=== PATIENT | male | born 1935 | race Caucasian/White ===

== ENCOUNTER 2020-12-03 11:21 | Inpatient (IN) | payer MEDICARE ==
[~2020-12-03] VITALS: Ht 172.7 cm; Wt 43.4 kg
[2020-12-03 11:50] LABS: BASOPHILS ABSOLUTE AUTO 0.04 K/mm3 (0.00-0.23); BASOPHILS PERCENT AUTO 0 % (0-2); EOSINOPHILS ABSOLUTE AUTO 0.02 K/mm3 (0.00-0.68); EOSINOPHILS PERCENT AUTO 0 % (0-6); Hemoglobin 14.1 g/dL (13.5-17.5); IMMATURE GRAN ABSOLUTE AUTO 0.07 K/mm3 (0.00-0.10); IMMATURE GRAN PERCENT AUTO 1 % (0-1); LYMPHOCYTES ABSOLUTE AUTO 0.33 K/mm3 (0.84-5.20); LYMPHOCYTES PERCENT AUTO 2 % (21-46); MONOCYTES ABSOLUTE AUTO 0.89 K/mm3 (0.16-1.47); MONOCYTES PERCENT AUTO 6 % (4-13); Mean Corpuscular HGB 32.9 pg (26.0-34.0); Mean Corpuscular HGB Conc 32.8 g/dL (31.5-36.5); Mean Corpuscular Volume 101 fL (80-100); Mean Platelet Volume 10.1 fL (9.1-12.4); NEUTROPHILS ABSOLUTE AUTO 12.52 K/mm3 (1.96-9.15); NEUTROPHILS PERCENT AUTO 90 % (41-73); Platelet Count 242 K/mm3 (150-400); RDW Coefficient Variation 12.5 % (11.7-14.2); RDW Standard Deviation 46.5 fL (35.1-46.3); Red Blood Cell Count 4.28 M/mm3 (4.30-5.90); White Blood Cell Count 13.87 K/mm3 (4.00-11.30)
[2020-12-03 12:11] LABS: Alanine Aminotransfer (ALT/SGP 7 U/L (12-78); Albumin, Blood 2.1 g/dL (3.4-5.0); Albumin/Globulin Ratio 0.4 (0.8-1.8); Alk Phos 68 U/L (50-136); Anion Gap 10 mmol/L (6-16); Aspartate Aminotrans (AST/SGOT 15 U/L (12-37); Bilirubin, Total 0.9 mg/dL (0.1-1.0); Blood Urea Nitrogen 22 mg/dL (8-24); Bun/Creatinine Ratio 25.1 (12.0-20.0); CO2, Blood 31 mmol/L (21-32); Calcium, Blood 8.6 mg/dL (8.5-10.1); Chloride, Blood 100 mmol/L (98-108); Creatinine, Blood 0.88 mg/dL (0.60-1.20); Globulin, Blood 4.8 g/dL (2.2-4.0); Glomerular Filtration Rate >60 (60-); Glucose, Blood 84 mg/dL (70-99); Potassium, Blood 3.9 mmol/L (3.5-5.5); Sodium, Blood 141 mmol/L (136-145); Total Protein, Blood 6.9 g/dL (6.4-8.2); Troponin I <0.015 ng/mL (0.000-0.040)
[2020-12-03 12:49] LABS: SARS-Cov-2 (COVID-19) PCR, MMC NEGATIVE (NEGATIVE)
--- NOTE | 2020-12-03 13:41 | NUR ---
ED Palliative Care Consult Spoke with Dr Vilchis and discussed case. Pt to the ED with saturations in the 60's and is currently on non rebreather. Pt has history of possible throat cancer and has not followed up with oncology or a PCP. Pt has POLST filled out with no MD signature with wishes for DNR and Comfort Measures Only. Pt is agreeable to IV antibiotics. Goals of care discussion may be beneficial. Pt resting on gurny and is on non rebreather. Pt has some difficulty with hearing this RN. Pt is A&O. Engaged in therapeutic discussion regarding goals of care. Confirmed with Pt that if recommended he is agreeable to be admitted. Discussed hospice as an option with Pt reporting being opened to the idea and is agreeable with further conversations when his son arrives. Pt appears dyspneic as evidenced by work of breathing. Ended visit to allow Pt to rest. Spoke with Pt's son Zbigniew over the phone. Zbigniew reports Allen who is listed as Pt's spouse 15 years ago. He reports Pt having another son who has not been in contact with Pt in 25 years. Zbigniew reports living in the [facility] and is traveling up to [place] now. Zbigniew reports just leaving the Pt a couple of days ago. Dayna reports hospice has been discussed and is opened to further conversations. Pt's spouse was on hospice at the end of her life. Zbigniew reports having completed POA with Pt and will bring a copy to the hospital tomorrow. Zbigniew's phone number is [phone] Palliative Care will plan for further discussion regarding goals of care.
--- NOTE | 2020-12-03 19:59 | NUR ---
NURSE NOTE [employer] OFFICER REPORTED THAT PT SATS WONT GO ABOVE 70. PT WAS ON 13L NONREATHER. I INCREASED PT TO 15L. SATS INCREASED TO 81%. RT CALLED TO ROOM, CALLED. ORDERS TO PLACE PT ON BIPAP AND TRANSFER TO PCU.
[2020-12-03 22:16] LABS: Source, Urine Catheter
[2020-12-03 22:19] LABS: Appearance, Urine Clear (Clear); Bilirubin, Urine Neg (Neg); Blood, Urine 5+ (Neg); Color, Urine Yellow (P-Yellow); Glucose Qualitative, Urine Neg (Neg); Ketones, Urine 2+ (Neg); Leukocyte Esterase, Urine 1+ (Neg); Nitrite, Urine Neg (Neg); Protein, Urine 2+ (Neg); Urobilinogen, Urine 1+ (Normal)
[2020-12-03 22:25] LABS: Amorphous Light (0-Heavy); Bacteria Few /hpf; Squamous Epithelial Cells Not Seen /hpf (Few)
--- NOTE | 2020-12-03 22:39 | NUR ---
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 ANAYA CATETHER INSERTED 14FR COUDE, UA WAS OBTAINED, HYPOTENSIVE UPON ADMISSION TO PCU NEW ORDERS FOR NS 1,000 BOLUS, NO MEDICATIONS SCHEDULED FOR 1700 GIVEN BY PRIOR UNIT, STARTED GIVING UPON ADMISSION. LUNGS ARE DIMINISHED THROUGOUT ALL BASES, ABDOMEN HYPOACTIVE BOWEL TONES, PATIENT UNWILLING TO ANSWER ALL QUESTIONS ON ADMISSION. WCTM
[2020-12-04 03:55] LABS: BASOPHILS ABSOLUTE AUTO 0.02 K/mm3 (0.00-0.23); BASOPHILS PERCENT AUTO 0 % (0-2); EOSINOPHILS PERCENT AUTO 0 % (0-6); Hematocrit 26.8 % (37.0-53.0); Hemoglobin 8.5 g/dL (13.5-17.5); IMMATURE GRAN ABSOLUTE AUTO 0.06 K/mm3 (0.00-0.10); IMMATURE GRAN PERCENT AUTO 0 % (0-1); LYMPHOCYTES ABSOLUTE AUTO 0.08 K/mm3 (0.84-5.20); LYMPHOCYTES PERCENT AUTO 1 % (21-46); MONOCYTES ABSOLUTE AUTO 0.74 K/mm3 (0.16-1.47); MONOCYTES PERCENT AUTO 5 % (4-13); Mean Corpuscular HGB 33.2 pg (26.0-34.0); Mean Corpuscular HGB Conc 31.7 g/dL (31.5-36.5); Mean Corpuscular Volume 105 fL (80-100); Mean Platelet Volume 10.5 fL (9.1-12.4); NEUTROPHILS ABSOLUTE AUTO 14.64 K/mm3 (1.96-9.15); NEUTROPHILS PERCENT AUTO 94 % (41-73); Platelet Count 151 K/mm3 (150-400); RDW Coefficient Variation 12.7 % (11.7-14.2); RDW Standard Deviation 48.8 fL (35.1-46.3); Red Blood Cell Count 2.56 M/mm3 (4.30-5.90); White Blood Cell Count 15.54 K/mm3 (4.00-11.30)
[2020-12-04 04:15] LABS: Blood Urea Nitrogen 15 mg/dL (8-24); Bun/Creatinine Ratio 28.2 (12.0-20.0); CO2, Blood 15 mmol/L (21-32); Chloride, Blood 125 mmol/L (98-108); Creatinine, Blood 0.53 mg/dL (0.60-1.20); Glomerular Filtration Rate >60 (60-); Glucose, Blood 89 mg/dL (70-99)
[2020-12-04 04:16] LABS: Anion Gap 11 mmol/L (6-16); Calcium, Blood <5.0 mg/dL (8.5-10.1); Sodium, Blood 151 mmol/L (136-145)
[2020-12-04 11:33] LABS: Anion Gap 13 mmol/L (6-16); Blood Urea Nitrogen 27 mg/dL (8-24); CO2, Blood 21 mmol/L (21-32); Chloride, Blood 109 mmol/L (98-108); Creatinine, Blood 1.04 mg/dL (0.60-1.20); Glomerular Filtration Rate >60 (60-); Glucose, Blood 108 mg/dL (70-99); Potassium, Blood 4.6 mmol/L (3.5-5.5); Sodium, Blood 143 mmol/L (136-145)
--- NOTE | 2020-12-04 11:38 | NUR ---
Joint Pt visit with Dr Diaz and this RN. Pt resting in bed and is on CPAP at 90% FIO2. Son Zbigniew is at bedside. Zbigniew requests conversation out in [place] and is intermittently tearful. Dr Diaz provides update on Pt's condition and goals of care discussed. Listened as Zbigniew reports Pt did not want to come to the hospital and took some convincing for him to come. Zbigniew reports Pt would want to focus on comfort at this point in Pt's life. Educated on comfort care philosophy with V/U made by Zbigniew. Dr Diaz answers qeustions and supportive listening provided. Decision to follow Pt's wishes is made and Pt will transition to comfort care. Provided Zbigniew a list of homes to choose from. Dr Diaz will place comfort care order and comfort care medications. Spoke with Primary RNs Tenisha and Elly. Discussed case and plan. Palliative Care will remain available for symptom management and supportive visits. PPS 20% ADLs /
--- NOTE | 2020-12-04 14:53 | NUR ---
CARE NOTE PT CHANGED TO COMFORT CARE THIS AM. SON KODI WAS AT BEDSIDE THIS AM AND ALSO CONSULTED WITH PALLIATIVE CARE NURSE. PT NOW ON 3L VIA NC AND APPEARS COMFORTABLE. PT IS NOT ABLE TO ASSIST W/ TURNING, CAN MOVE BILATERAL LOWER EXTREMETIES. ANAYA CATHETER IS IN PLACE AND DRAINING DARK YELLOW OUTPUT. PT DENIED PAIN AND DOES NOT SHOW ANY OTHER PHYSIOLOGIC SIGNS OF PAIN. WILL CONTINUE TO MONITOR.
--- NOTE | 2020-12-04 15:35 | NUR ---
PT TRANFERED TO THIS FLOOR AT 1530. PT NOT WAKING UP AT THIS TIME AND IS SLEEPING COMFORTABLY. BED ALARM IN PLACE WILL CONTINUE TO MONITOR.
--- NOTE | 2020-12-05 03:42 | NUR ---
PARAS AT 0335 THIS MORNING. THE WAS VERIFIED WITH MYSELF AND WILMA COELLO RN (CHARGE).
== END 2020-12-05 03:35 | DRG 871 ==
LOC: ER 11:21 → MEDS 16:19 → PCU 16:19 → MEDS 19:01 → PCU 20:25 → MEDS 12-04 15:23
PROVIDERS: Internal Medicine; Student in an Organized Health Care Education/Training Program; ADMIT Internal Medicine
PROC: 5A09357 Assistance with Respiratory Ventilation, Less than 24 Consecutive Hours, Continuous Positive Airway Pressure (ICD-10-PCS; principal; 2020-12-03)
DX: A41.9 Sepsis, unspecified organism (principal); J96.01 Acute respiratory failure with hypoxia; J18.0 Bronchopneumonia, unspecified organism; E43 Unspecified severe protein-calorie malnutrition; N13.30 Unspecified hydronephrosis; R64 Cachexia; C77.0 Secondary and unspecified malignant neoplasm of lymph nodes of head, face and neck; Z68.1 Body mass index [BMI] 19.9 or less, adult; Z66 Do not resuscitate; Z20.822 Contact with and (suspected) exposure to COVID-19; Z51.5 Encounter for palliative care; R65.20 Severe sepsis without septic shock; F17.210 Nicotine dependence, cigarettes, uncomplicated; C32.9 Malignant neoplasm of larynx, unspecified; F10.20 Alcohol dependence, uncomplicated
CPT/HCPCS: 36415; 36416; 70491; 71260; 74176; 80048; 80053; 81001; 83605; 83880; 84484; 85025; 87086; 93005; 93010; 94640; 94660; 94762; 96365; 96367; 96375; 99285-25; A9270; J0456; J0610; J0696; J1650; J2060; J2930; J3411; J3480; J7030; J7050; Q9967; U0004